=== PATIENT | female | born 1950 ===

== ENCOUNTER 2021-05-19 07:00 | Day surgery (SDC) | payer OTHER ==
[~2021-05-19 07:00] MED LIST: ALLERGY RELIE15.8 ML NASAL; ATORVASTATIN CA10 MG PO; CLARITIN10 M1 PO; FLOVENT HFA12 GM IH; LOSARTAN-HCTZ1 EACH PO; MAGNESIUM500 MG PO; PROBIOTIC1 EAC6 PO; SYNTHROID75 MCG PO; VERAPAMIL HCL40 MG PO
[2021-05-19] MEDS ORDERED: ULTRACET PO (10:31)
== END 2021-05-19 15:20 | disposition home or self-care (01) ==
LOC: CIR.AMB 07:00
PROVIDERS: ATTEND Obstetrics & Gynecology Gynecology
DX: N81.6 Rectocele (principal); N81.5 Vaginal enterocele